=== PATIENT | male | born 1985 | race Caucasian/White ===

== ENCOUNTER 2017-01-06 14:44 | Emergency (ER) | payer OTHER ==
[~2017-01-06] VITALS: Ht 172.7 cm; Wt 90.7 kg
--- NOTE | 2017-01-06 15:52 | NUR ---
PT ELOPED. SAID DOES NOT WANT TO WAIT ANY LONGER., ALTHOUGH THE DOCTOR OFFERED THEM TO SEE THEM IMMEDIATELY. PT WAS TOLD TO MAKE SURE TO GET THEIR TETANUS. PT STILL DECIDED TO LEAVE.
== END 2017-01-06 15:59 | disposition left against medical advice (07) ==
LOC: ER 14:44
DX: S50.312A Abrasion of left elbow, initial encounter (principal); Z53.21 Procedure and treatment not carried out due to patient leaving prior to being seen by health care provider
CPT/HCPCS: A4663

== ENCOUNTER 2017-07-03 20:24 | Emergency (ER) | payer OTHER ==
[~2017-07-03] VITALS: Ht 177.8 cm; Wt 97.5 kg
[2017-07-03] MEDS ORDERED: CLINDAMYCIN HCL 150 MG CAPSULE PO ONE (22:30)
[2017-07-03] MEDS ORDERED: ACYCLOVIR 400 MG TABLET PO ONE (22:30)
[2017-07-03] MEDS ORDERED: ACYCLOVIR 400 MG TABLET ONE (23:02)
[2017-07-03] MEDS ORDERED: CLINDAMYCIN HCL 300 MG CAPSULE ONE (23:02)
--- NOTE | 2017-07-03 23:06 | NUR ---
Patient discharged to home in stable conditon. Written and verbal after care instructions given. Patient verbalizes understanding of instructions.
== END 2017-07-03 23:09 | disposition home or self-care (01) ==
LOC: ER 20:25
DX: B01.9 Varicella without complication (principal); L03.90 Cellulitis, unspecified
CPT/HCPCS: 99283; A4663